=== PATIENT | male | born 1990 | race Two or more races ===

== ENCOUNTER 2024-07-23 08:42 | Emergency (ER) | payer MEDICAID, OTHER ==
[~2024-07-23] VITALS: Ht 177.8 cm; Wt 93.6 kg
[2024-07-23 08:58] VITALS: TEMP 96.9
[2024-07-23] MEDS: methocarbamoL 500 MG TABLET PO ONE (09:11)
[2024-07-23] MEDS: IBUPROFEN 600 MG TABLET PO ONE (09:11)
[2024-07-23] MEDS: LIDOCAINE 5% TRANSDERMAL PATCH TD ONE (09:12)
[2024-07-23 09:59] VITALS: BP 121/72; PULSE 80; RESP 16; O2SAT 100
[2024-07-23] MEDS ORDERED: IBUP-1492 PO (10:28)
[2024-07-23] MEDS ORDERED: LIDO-57 TP (10:28)
[2024-07-23] MEDS ORDERED: METH-659 PO (10:28)
== END 2024-07-23 10:48 | disposition home or self-care (01) ==
LOC: EMS 08:42
DX: S29.012A Strain of muscle and tendon of back wall of thorax, initial encounter (principal); X58.XXXA Exposure to other specified factors, initial encounter; Y93.89 Activity, other specified; Y92.89 Other specified places as the place of occurrence of the external cause; Y99.8 Other external cause status
CPT/HCPCS: 99284; Z7502; Z7610